=== PATIENT | female | born 1965 | race Caucasian/White ===

== ENCOUNTER → 2017-05-29 | Day surgery (SDC) | payer OTHER ==
[~2017-05-29] MED LIST: FENTANYL CITRATE/PF 100MCG/2 ML INJ ONE; MIDAZOLAM HCL 2 MG/2 ML VIAL ONE; PANTOPRAZOLE SO40 MG PO; PROPOFOL IV EMULSION 10 MG/ML 50 ML VIAL ONE
--- NOTE | 2017-05-29 12:34 | Operative Report ---
DATE OF PROCEDURE: May 29, 2017 REFERRING PHYSICIAN: Dr. Francis Gonzalez. PROCEDURE PERFORMED: Esophagogastroduodenoscopy with esophageal dilatation. INDICATIONS FOR EGD: Dysphagia, history of acid reflux. MEDICATION: Patient was done under MAC. Please see anesthesiologist's note. PROCEDURE: With patient in left lateral decubitus position, flexible fiberoptic Olympus gastroscope was introduced into the esophagus under direct visualization without any difficulty. There was some patchy erythema noted in the distal esophagus. Minute tongues of velvety red mucosa were noted to extend proximally from the GE junction, biopsied to rule out Rutherford's. There was a mild stricture noted at the GE junction that was dilated to a size 52-Chilean Duran. The scope was then advanced with ease into her stomach. Mucosa overlying the antrum and the body revealed some patchy erythema and mild to moderate edema, and biopsies were obtained and sent to stain for H. pylori. Pylorus appeared to be of normal contour and shape. Was intubated with ease and scope was advanced all the way to the 2nd portion of the duodenum. The scope was then withdrawn slowly, and, mucosa overlying the proximal 2nd portion and the duodenal bulb appeared to be within normal limits. The scope was then withdrawn back into the stomach and retroflexed, and mucosa overlying the fundus and the cardia appeared to be within normal limits. The scope was then straightened out. The stomach was decompressed, the scope subsequently withdrawn. Patient tolerated the procedure well. IMPRESSION 1. Distal esophagitis, mild. 2. Minute tongues of ? Rutherford's biopsied. 3. Esophageal stricture at gastroesophageal junction dilated to size 52-Chilean Duran. 4. Gastritis biopsied. Biopsies sent stain for Helicobacter pylori. PLAN: Follow up histology. Initiate Protonix 40 mg 1 p.o. q.a.m. a.c. Job#: [id number] MARK cc:SEN GONZALEZ DO
== END | disposition home or self-care (01) ==
LOC: OR 06:32
PROVIDERS: ATTEND Internal Medicine Gastroenterology
DX: K29.70 Gastritis, unspecified, without bleeding (principal); K22.2 Esophageal obstruction; K22.70 Barrett's esophagus without dysplasia; K20.8 Other esophagitis; K21.9 Gastro-esophageal reflux disease without esophagitis; K44.9 Diaphragmatic hernia without obstruction or gangrene; Z80.0 Family history of malignant neoplasm of digestive organs
CPT/HCPCS: 43239; 43450; 81025; J2250

== ENCOUNTER → 2017-09-19 | Day surgery (SDC) | payer OTHER ==
[~2017-09-19] MED LIST changes: +BIOTIN; -FENTANYL CITRATE/PF 100MCG/2 ML INJ ONE; +LIDOCAINE HCL 2% LOCAL INJ 5 ML SDV VIAL INJ ONE; +MYRBETRIQ25 MG PO
--- NOTE | 2017-09-19 09:18 | Operative Report ---
DATE OF PROCEDURE: September 19, 2017 REFERRING PHYSICIAN: Dr. Brando Aaron. PROCEDURE PERFORMED: Esophagogastroduodenoscopy with biopsies. INDICATIONS FOR EGD: History of Rutherford's esophagus with low-grade dysplasia. MEDICATION: Patient was done under MAC. Please see anesthesiologist's note. PROCEDURE: With the patient in the left lateral decubitus position, the flexible fiberoptic Olympus gastroscope was introduced into the esophagus under direct visualization without any difficulty. The previously described tongues of Rutherford's esophagus appeared to have been partially re-epithelialized. Multiple biopsies were obtained. The scope was then advanced into the stomach, traversing a small hiatal hernia. Mucosa overlying the antrum and the body revealed some patchy erythema. Pylorus appeared to be of normal contour and shape. It was intubated with ease, and the scope was advanced all the way to the 2nd portion of the duodenum. The scope was then withdrawn slowly. Mucosa overlying the proximal 2nd portion and the duodenal bulb appeared to be within normal limits. The scope was then withdrawn back into the stomach and retroflexed. Mucosa overlying the fundus and the cardia appeared to be within normal limits. The scope was then straightened out. The stomach was decompressed. The scope was subsequently withdrawn. Patient tolerated the procedure well. IMPRESSION 1. Previously described tongues of Rutherford's partially re-epithelialized. Biopsies obtained. 2. Small hiatal hernia. 3. Gastritis, low grade. PLAN: Follow up histology. Continue Protonix 40 mg 1 p.o. q.a.m. a.c. If repeat biopsies reveal low-grade dysplasia, then will increase Protonix to b.i.d. Job#: [id number] cc:BRANDO AARON DO
== END | disposition home or self-care (01) ==
LOC: OR 05:47
PROVIDERS: ATTEND Internal Medicine Gastroenterology
DX: K22.710 Barrett's esophagus with low grade dysplasia (principal); K29.70 Gastritis, unspecified, without bleeding; K21.9 Gastro-esophageal reflux disease without esophagitis; K44.9 Diaphragmatic hernia without obstruction or gangrene; R32 Unspecified urinary incontinence; Z01.810 Encounter for preprocedural cardiovascular examination; Z87.891 Personal history of nicotine dependence
CPT/HCPCS: 43239; 81025; 93005; J2001; J2250